=== PATIENT | female | born 1970 | race Caucasian/White ===

== ENCOUNTER → 2021-03-04 | Outpatient (CLI) | payer MEDICARE, OTHER ==
[~2021-03-04] MED LIST: ABILIFY5 MG PO; ASPIRIN 325MG325 MG PO; ATORVASTATIN CA80 MG PO; BUSPAR 10MG10 MG PO; CHANTIX1 MG PO; CLARITIN10 M2 PO; CLEOCIN HCL300 MG PO; COLACE 100MG C100 MG PO; COREG6.25 MG PO; COZAAR25 MG PO; ENDOCET 7.5-321 EACH PO; HABITROL 21 MG P1 EA TOP; HYDROCODON-ACE1 EAC4 PO; IMDUR ER TAB 6060 MG PO; INVANZ 1 GM VIAL1 GM IV; JUVEN PACKET1 EACH PO; KLONOPIN TAB 00.5 MG PO; LEVEMIR 10100 UNITS/ SQ; LEVEMIR100 UNIT/1 SC; LYRICA300 MG PO; NITROSTAT0.4 MG SL; NOVOLOG 10100 UNITS/ SC; NOVOLOG 10100 UNITS/ SQ; OMEGA 3 1,0001 EACH PO; OMEPRAZOLE40 MG PO; OMNIPOD1 EACH SQ; OTEZLA30 MG PO; OXYCODONE HCL15 MG PO; PAMELOR75 MG PO; PAXIL 20 MG TAB20 MG PO; PERCOCET 10-321 EACH PO; PLAVIX 75 MG TA75 MG PO; PROVENTIL HFA 61 INH INH; ROCEPHIN 1 GM AD1 GM IM; SINGULAIR10 MG PO; ST. JOSEPH ASPI81 MG PO; TOPAMAX100 MG PO; TOPROL XL 25 MG25 MG PO; VANCOCIN IV 11000 MG IV; VENTOLIN/PROVE0.5 ML INH; VIT C-BIOFLAVO1 EACH PO; VITAMIN C 500500 MG PO; VITAMIN C500 M4 PO; VITAMIN D50000 UNIT PO; ZYVOX600 MG PO
== END ==
LOC: EXRD 11:00
DX: I73.9 Peripheral vascular disease, unspecified (principal); S91.301A Unspecified open wound, right foot, initial encounter; S91.302A Unspecified open wound, left foot, initial encounter
CPT/HCPCS: 93925

== ENCOUNTER → 2021-05-03 | Outpatient (CLI) | payer MEDICARE, OTHER ==
[~2021-05-03] MED LIST changes: +AUGMENTIN 875-1 EACH PO; +DOCUSATE SODIU250 MG PO; +FLONASE ALLER15.8 ML; +HYDROCODONE-AC1 EACH PO; +IBUPROFEN600 MG PO; +ISOSORBIDE MONO30 MG PO; +LEXAPRO10 MG PO; +LIPITOR40 MG PO; +TRIAMCINOLONE CREAM TOP; +VITAMIN B-121000 MCG PO; +VITAMIN D350 MC3 PO
[2021-05-03 16:02] LABS: RED BLOOD COUNT 5.32 M/UL (4.00-5.10); WHITE BLOOD COUNT 9.9 K/UL (4.5-11.0)
== END ==
LOC: OPSV2 10:30
PROVIDERS: Obstetrics & Gynecology
DX: Z01.818 Encounter for other preprocedural examination (principal); N18.2 Chronic kidney disease, stage 2 (mild); J84.9 Interstitial pulmonary disease, unspecified; R94.31 Abnormal electrocardiogram [ECG] [EKG]
CPT/HCPCS: 36415; 71046; 80053; 81001; 82570; 84156; 85025; 93005

== ENCOUNTER → 2021-05-06 | Day surgery (SDC) | payer MEDICARE, OTHER | END | disposition home or self-care (01) | LOC: OR 07:04 | PROVIDERS: Obstetrics & Gynecology | PROC: 0UBMXZZ Excision of Vulva, External Approach (ICD-10-PCS; principal; 2021-05-06 10:40) | DX: D07.1 Carcinoma in situ of vulva (principal); A63.0 Anogenital (venereal) warts; I25.2 Old myocardial infarction; I25.10 Atherosclerotic heart disease of native coronary artery without angina pectoris; I10 Essential (primary) hypertension; E78.5 Hyperlipidemia, unspecified; J44.9 Chronic obstructive pulmonary disease, unspecified; M19.90 Unspecified osteoarthritis, unspecified site; F17.210 Nicotine dependence, cigarettes, uncomplicated; E11.40 Type 2 diabetes mellitus with diabetic neuropathy, unspecified; E66.01 Morbid (severe) obesity due to excess calories; Z68.35 Body mass index [BMI] 35.0-35.9, adult; Z90.710 Acquired absence of both cervix and uterus; Z20.822 Contact with and (suspected) exposure to COVID-19; Z95.5 Presence of coronary angioplasty implant and graft | CPT/HCPCS: 82962; 94664; J0690; J1100; J2001; J2250; J2405; J2704; J3010; J7030; J7120 ==

== ENCOUNTER 2021-06-10 13:25 | Inpatient (IN) | payer MEDICARE, OTHER ==
[~2021-06-10] VITALS: Ht 167.6 cm; Wt 72.6 kg
[~2021-06-10 13:25] MED LIST changes: -AUGMENTIN 875-1 EACH PO; -FLONASE ALLER15.8 ML; -ISOSORBIDE MONO30 MG PO; -LEXAPRO10 MG PO; -LIPITOR40 MG PO; -VITAMIN B-121000 MCG PO; -VITAMIN D350 MC3 PO
[2021-06-10 14:05] LABS: HEMOGLOBIN 13.6 gm/dl (12.3-15.3); RED BLOOD COUNT 4.63 M/UL (4.00-5.10); WHITE BLOOD COUNT 8.5 K/UL (4.5-11.0)
[2021-06-10] MEDS ORDERED: ISOSORBIDE MONO30 MG PO (15:49)
[2021-06-10] MEDS ORDERED: LEXAPRO10 MG PO (15:51)
[2021-06-10] MEDS ORDERED: LIPITOR40 MG PO (15:51)
[2021-06-10] MEDS ORDERED: VITAMIN B-121000 MCG PO (15:53)
[2021-06-10] MEDS ORDERED: FLONASE ALLER15.8 ML (15:53)
[2021-06-10] MEDS ORDERED: VITAMIN D350 MC3 PO (15:54)
[2021-06-10 23:40] LABS: ACINETOBACTER BAUMANNII Not Detected (Negative); CANDIDA ALBICANS Not Detected (Negative); CANDIDA KRUSEI Not Detected (Negative); CANDIDA TROPICALIS Not Detected (Negative); ENTEROCOCCUS Not Detected (Negative); ESCHERICHIA COLI Not Detected (Negative); HAEMOPHILUS INFLUENZAE Not Detected (Negative); KLEBSIELLA OXYTOCA Not Detected (Negative); KLEBSIELLA PNEUMONIAE Not Detected (Negative); KPC-CARBAPENEM-RESISTANCE GENE Not Detected (Negative); PROTEUS Not Detected (Negative); PSEUDOMONAS AERUGINOSA Not Detected (Negative); SERRATIA MARCESANS Not Detected (Negative); STAPHYLOCOCCUS Not Detected (Negative); STAPHYLOCOCCUS AUREUS Not Detected (Negative); STREP PYOGENES (GROUP A) Not Detected (Negative); mecA (METHICILLIN RESIST GENE Not Detected (Negative); vanA/B (VANCOMYCIN RESIST GENE Not Detected (Negative)
[2021-06-11 01:52] LABS: STREP AGALACTIAE (GROUP B) DETECTED (Negative); STREPTOCOCCUS DETECTED (Negative)
[2021-06-11 04:48] LABS: HEMOGLOBIN 12.9 gm/dl (12.3-15.3); RED BLOOD COUNT 4.33 M/UL (4.00-5.10)
[2021-06-11 04:56] LABS: WHITE BLOOD COUNT 11.2 K/UL (4.5-11.0)
[2021-06-12 04:54] LABS: HEMOGLOBIN 11.9 gm/dl (12.3-15.3); RED BLOOD COUNT 4.1 M/UL (4.00-5.10); WHITE BLOOD COUNT 11.1 K/UL (4.5-11.0)
[2021-06-13 08:56] LABS: HEMOGLOBIN 12.5 gm/dl (12.3-15.3); RED BLOOD COUNT 4.07 M/UL (4.00-5.10); WHITE BLOOD COUNT 13.4 K/UL (4.5-11.0)
[2021-06-14 04:09] LABS: HEMOGLOBIN 13.1 gm/dl (12.3-15.3); RED BLOOD COUNT 4.24 M/UL (4.00-5.10); WHITE BLOOD COUNT 12.7 K/UL (4.5-11.0)
[2021-06-15 07:56] LABS: HEMOGLOBIN 13.3 gm/dl (12.3-15.3); RED BLOOD COUNT 4.36 M/UL (4.00-5.10); WHITE BLOOD COUNT 11.7 K/UL (4.5-11.0)
[2021-06-15 08:27] LABS: BUN/CREATININE RATIO 42 (0-10)
[2021-06-16 02:46] LABS: HEMOGLOBIN 13.1 gm/dl (12.3-15.3); RED BLOOD COUNT 4.22 M/UL (4.00-5.10); WHITE BLOOD COUNT 10.3 K/UL (4.5-11.0)
[2021-06-16 03:12] LABS: BUN/CREATININE RATIO 37 (0-10)
[2021-06-17 05:10] LABS: HEMOGLOBIN 11.9 gm/dl (12.3-15.3); RED BLOOD COUNT 3.87 M/UL (4.00-5.10)
[2021-06-17 06:07] LABS: BUN/CREATININE RATIO 29 (0-10)
[2021-06-18 06:43] LABS: HEMOGLOBIN 12.2 gm/dl (12.3-15.3); RED BLOOD COUNT 3.99 M/UL (4.00-5.10); WHITE BLOOD COUNT 11.5 K/UL (4.5-11.0)
[2021-06-18 07:16] LABS: BUN/CREATININE RATIO 24 (0-10)
--- NOTE | 2021-06-18 13:55 | NUR ---
SURGEON CHANGED PATIENT DRESSING ON ROUNDS
[2021-06-19 07:00] LABS: HEMOGLOBIN 12.3 gm/dl (12.3-15.3); RED BLOOD COUNT 4.06 M/UL (4.00-5.10); WHITE BLOOD COUNT 9.8 K/UL (4.5-11.0)
[2021-06-19 07:50] LABS: BUN/CREATININE RATIO 19 (0-10)
[2021-06-20 04:05] LABS: HEMOGLOBIN 11.1 gm/dl (12.3-15.3); RED BLOOD COUNT 3.81 M/UL (4.00-5.10); WHITE BLOOD COUNT 11.5 K/UL (4.5-11.0)
[2021-06-20 04:26] LABS: BUN/CREATININE RATIO 20 (0-10)
[2021-06-21 06:55] LABS: HEMOGLOBIN 11.1 gm/dl (12.3-15.3); RED BLOOD COUNT 3.64 M/UL (4.00-5.10); WHITE BLOOD COUNT 11.3 K/UL (4.5-11.0)
[2021-06-21 07:17] LABS: BUN/CREATININE RATIO 16 (0-10)
[2021-06-22 05:46] LABS: BUN/CREATININE RATIO 18 (0-10)
[2021-06-23 05:02] LABS: HEMOGLOBIN 10.4 gm/dl (12.3-15.3); RED BLOOD COUNT 3.44 M/UL (4.00-5.10); WHITE BLOOD COUNT 8.9 K/UL (4.5-11.0)
[2021-06-23 05:18] LABS: BUN/CREATININE RATIO 21 (0-10)
--- NOTE | 2021-06-23 14:01 | NUR ---
STATES THAT HE WANTS TO CANCEL DISCHARGE UNTIL TOMORROW SO THAT SURGERY CAN CLEAR PATIENT PRIOR TO D/C. PATIENT MADE AWARE.
[2021-06-24] MEDS ORDERED: AUGMENTIN 875-1 EACH PO (13:58)
--- NOTE | 2021-06-24 19:20 | NUR ---
CALLED REPORT TO JOVANNA MARTÍNEZ RN AT 1919 ON 06/24/21.
== END 2021-06-24 21:00 | disposition home health service (06) | DRG 853 ==
LOC: ER1 13:25 → MED SURG 4 16:00 → CDU 16:00 → CCU 06-11 08:14 → MED SURG 4 06-12 00:39
PROVIDERS: Emergency Medicine; Internal Medicine; Physician Assistant; Surgery; ADMIT Internal Medicine
PROC: 0JBR0ZZ Excision of Left Foot Subcutaneous Tissue and Fascia, Open Approach (ICD-10-PCS; 2021-06-11)
PROC: 0Y6N0Z9 Detachment at Left Foot, Partial 1st Ray, Open Approach (ICD-10-PCS; 2021-06-16)
PROC: 0Y6N0ZB Detachment at Left Foot, Partial 2nd Ray, Open Approach (ICD-10-PCS; 2021-06-16)
PROC: 0Y6N0ZC Detachment at Left Foot, Partial 3rd Ray, Open Approach (ICD-10-PCS; 2021-06-16)
PROC: 0Y6N0ZD Detachment at Left Foot, Partial 4th Ray, Open Approach (ICD-10-PCS; 2021-06-16)
PROC: 0Y6N0ZF Detachment at Left Foot, Partial 5th Ray, Open Approach (ICD-10-PCS; 2021-06-16)
PROC: 0QBR0ZZ Excision of Left Toe Phalanx, Open Approach (ICD-10-PCS; 2021-06-19)
PROC: 0KXT0ZZ Transfer Left Lower Leg Muscle, Open Approach (ICD-10-PCS; 2021-06-19)
PROC: 0Y6J0Z3 Detachment at Left Lower Leg, Low, Open Approach (ICD-10-PCS; principal; 2021-06-19 08:20)
DX: A40.1 Sepsis due to streptococcus, group B (principal); G93.41 Metabolic encephalopathy; M86.8X7 Other osteomyelitis, ankle and foot; J44.1 Chronic obstructive pulmonary disease with (acute) exacerbation; N17.9 Acute kidney failure, unspecified; E87.1 Hypo-osmolality and hyponatremia; E11.52 Type 2 diabetes mellitus with diabetic peripheral angiopathy with gangrene; L03.115 Cellulitis of right lower limb; Z20.822 Contact with and (suspected) exposure to COVID-19; I25.10 Atherosclerotic heart disease of native coronary artery without angina pectoris; I12.9 Hypertensive chronic kidney disease with stage 1 through stage 4 chronic kidney disease, or unspecified chronic kidney disease; R65.20 Severe sepsis without septic shock; E11.22 Type 2 diabetes mellitus with diabetic chronic kidney disease; G89.4 Chronic pain syndrome; E78.5 Hyperlipidemia, unspecified; Z89.421 Acquired absence of other right toe(s); F41.9 Anxiety disorder, unspecified; E11.65 Type 2 diabetes mellitus with hyperglycemia; F32.9 Major depressive disorder, single episode, unspecified; E66.9 Obesity, unspecified; N18.30 Chronic kidney disease, stage 3 unspecified; D69.6 Thrombocytopenia, unspecified; J44.9 Chronic obstructive pulmonary disease, unspecified; F17.210 Nicotine dependence, cigarettes, uncomplicated; E87.6 Hypokalemia; E11.69 Type 2 diabetes mellitus with other specified complication; Z79.4 Long term (current) use of insulin; Z90.49 Acquired absence of other specified parts of digestive tract; Z90.710 Acquired absence of both cervix and uterus; Z68.25 Body mass index [BMI] 25.0-25.9, adult
CPT/HCPCS: 36415; 36600; 51702; 70450; 70551; 71045; 73630; 80048; 80053; 80202; 80307; 81001; 82140; 82803; 82962; 83036; 83605; 83735; 84100; 84132; 85025; 85027; 87040; 87077; 87086; 87150; 87186; 92507; 92526; 92610; 93005; 93925; 94640; 94664; 94760; 94762; 96374; 96375; 97161; 97530-GP-CQ; 99285; C1713; J0692; J1100; J1170; J1644; J2001; J2185; J2250; J2405; J2543; J2704; J2710; J3010; J3370; J3475; J3480; J7030; J7040; J7070; J7120; U0002

== ENCOUNTER → 2022-03-26 | Outpatient (CLI) | payer MEDICARE, OTHER ==
[~2022-03-26] MED LIST changes: +AUGMENTIN 875-1 EACH PO; +FLONASE ALLER15.8 ML; +ISOSORBIDE MONO30 MG PO; +LEXAPRO10 MG PO; +LIPITOR40 MG PO; +VITAMIN B-121000 MCG PO; +VITAMIN D350 MC3 PO
== END ==
LOC: KOH-I 15:18
DX: Z01.818 Encounter for other preprocedural examination (principal); S81.801A Unspecified open wound, right lower leg, initial encounter
CPT/HCPCS: 93926

== ENCOUNTER → 2022-04-02 | Outpatient (CLI) | payer MEDICARE, OTHER ==
[~2022-04-02] MED LIST changes: +AMMONIUM LACTA140 GM TOP; +FERROUS GLUCON324 M1 PO; +FLONASE SPRAY; +HYDROCODON-ACE1 EAC2 PO; +LORATADINE10 MG PO; +MYCOSTATIN POWD15 GM TOP; +NOVOLOG 10100 UNITS1 SQ; +PROAIR HFA8.5 GM INH; +PROZAC40 MG PO; +VARENICLINE1 EACH PO; +VITAMIN C1000 MG PO; +VITAMIN D3125 MCG PO
[2022-04-02 13:44] LABS: HEMOGLOBIN 14.9 gm/dl (12.3-15.3); RED BLOOD COUNT 4.89 M/UL (4.00-5.10); WHITE BLOOD COUNT 8.8 K/UL (4.5-11.0)
== END ==
LOC: OPSV2 12:30
PROVIDERS: Podiatrist Foot & Ankle Surgery
DX: E87.5 Hyperkalemia (principal); S91.301A Unspecified open wound, right foot, initial encounter; R94.31 Abnormal electrocardiogram [ECG] [EKG]
CPT/HCPCS: 80048; 83036; 85027; 93005